=== PATIENT | female | born 1935 | race Caucasian/White ===

== ENCOUNTER → 2019-09-28 | Outpatient (CLI) | payer OTHER ==
[~2019-09-28] MED LIST: AMITRIPTYLINE H25 M2 PO; AMITRIPTYLINE H25 M3 PO; APAP500 PO; B COMPLEX1 EAC1 PO; BIOIDENTICAL HORMONE TOP; CALCIUM 500 +1 EAC5 PO; DEPO-TESTO100 MG/1 M IM; GLUCOSAMINE HC500 MG PO; IBUPROFEN 800800 M1 PO; MACROBID 100 M100 M1 PO; MEGA BIOTIN10000 MCG PO; PROGESTERONE100 MG PO; PYRIDIUM200 MG PO; SENIOR TABS1 EACH PO; SYSTANE 0.3-0.1 EACH OP; VENTOLIN HFA 1818 GM INH; XANAX 0.25 MG0.25 MG PO; ZETIA10 MG PO
== END ==
LOC: SJCVCIMAG 10:19
DX: I08.8 Other rheumatic multiple valve diseases (principal); R94.31 Abnormal electrocardiogram [ECG] [EKG]; I25.10 Atherosclerotic heart disease of native coronary artery without angina pectoris; R93.1 Abnormal findings on diagnostic imaging of heart and coronary circulation; E78.00 Pure hypercholesterolemia, unspecified; R60.9 Edema, unspecified; K21.9 Gastro-esophageal reflux disease without esophagitis; M19.90 Unspecified osteoarthritis, unspecified site; Z87.891 Personal history of nicotine dependence; Z79.899 Other long term (current) drug therapy

== ENCOUNTER 2019-12-25 07:27 | Emergency (ER) | payer OTHER ==
[~2019-12-25] VITALS: Ht 165.1 cm; Wt 59.0 kg
[2019-12-25] MEDS ORDERED: MOBIC7.5 MG PO (10:33)
[2019-12-25 11:02] VITALS: BP 142/63
== END 2019-12-25 11:06 | disposition home or self-care (01) ==
LOC: ER 07:27
DX: S60.362A Insect bite (nonvenomous) of left thumb, initial encounter (principal); M19.042 Primary osteoarthritis, left hand; E78.5 Hyperlipidemia, unspecified; Z90.710 Acquired absence of both cervix and uterus; Z79.899 Other long term (current) drug therapy; W57.XXXA Bitten or stung by nonvenomous insect and other nonvenomous arthropods, initial encounter; Y93.89 Activity, other specified; Y92.89 Other specified places as the place of occurrence of the external cause; Y99.8 Other external cause status

== ENCOUNTER → 2020-09-27 | Outpatient (CLI) | payer OTHER ==
[~2020-09-27] MED LIST changes: +MOBIC7.5 MG PO
== END ==
LOC: SJCVCIMAG 07:49
PROVIDERS: ATTEND Internal Medicine Cardiovascular Disease
DX: R00.0 Tachycardia, unspecified (principal); R06.00 Dyspnea, unspecified; R93.1 Abnormal findings on diagnostic imaging of heart and coronary circulation; I25.10 Atherosclerotic heart disease of native coronary artery without angina pectoris; G89.29 Other chronic pain; M54.5 Low back pain; E78.00 Pure hypercholesterolemia, unspecified; R60.9 Edema, unspecified; K21.9 Gastro-esophageal reflux disease without esophagitis; M19.90 Unspecified osteoarthritis, unspecified site; Z98.890 Other specified postprocedural states; Z88.2 Allergy status to sulfonamides; Z88.8 Allergy status to other drugs, medicaments and biological substances; Z79.899 Other long term (current) drug therapy; Z87.891 Personal history of nicotine dependence